=== PATIENT | female | born 1975 | race Caucasian/White ===

== ENCOUNTER → 2018-10-27 | Outpatient (CLI) | payer OTHER, SELFPAY ==
--- NOTE | 2018-10-27 12:40 | REPMRS ---
Patient History The patient states she has not had a clinical breast exam in over a year. Family history of breast cancer at age 50 or over in maternal aunt. Taking hormonal contraceptives for 10 years. Digital Mammo Screening Bilat: October 27, 2018 - Exam #: [id number] Bilateral CC and MLO view(s) were taken. Technologist: Caitlyn Cabrera, Technologist Prior study comparison: 2016, bilateral mammogram, performed at [facility]. FINDINGS: There are scattered fibroglandular densities. There has been no change in the appearance of the mammogram from the prior studies. There is a mild amount of residual fibroglandular tissue which is fairly symmetric. There is no interval development of dominant mass, architectural distortion, or clustered microcalcification suggestive of malignancy. Assessment: BI-RADS/ACR category 1 mammogram. Negative Mammogram. Recommendation Routine screening mammogram in 1 year (for women over age 40). This mammogram was interpreted with the aid of an FDA-approved computer-aided dectection system. Electronically Signed By: Keegan Andrea MD 10/27/18 [id number]
== END ==
LOC: M RAD 08:50
PROVIDERS: ATTEND Obstetrics & Gynecology
DX: Z12.31 Encounter for screening mammogram for malignant neoplasm of breast (principal)

== ENCOUNTER → 2019-06-09 | Outpatient (CLI) | payer OTHER ==
--- NOTE | 2019-06-10 07:37 | REP ---
Clinical: Intermittent substernal chest pain. Technique: Axial noncontrast images from the thoracic inlet to the upper abdomen with coronal and sagittal re-formations. Findings: The bilateral lung kinsey are essentially well-aerated and without consolidation, significant nodule, or mass lesion. No pleural effusion. No pneumothorax. Tracheobronchial tree is patent and within normal limits. No obvious adenopathy. The mediastinum demonstrates normal thoracic aorta, pulmonary vasculature and heart/pericardium. The surrounding musculoskeletal structures including sternum appears normal. Impression: Normal noncontrast chest CT. Electronically Signed by Barry Nick MD 06/10/2019 07:28 A
== END ==
LOC: M RAD 07:35
DX: R07.2 Precordial pain (principal)

== ENCOUNTER → 2019-12-25 | Outpatient (CLI) | payer OTHER ==
--- NOTE | 2019-12-25 11:07 | REPMRS ---
Patient History The patient states she had a clinical breast exam in December 2019. Family history of breast cancer at age 50 or over in maternal aunt. Taking hormonal contraceptives for 10 years. Digital Woman Screen Mammo: December 25, 2019 - Exam #: [id number] Bilateral CC and MLO view(s) were taken. Technologist: Gaby Larson, Technologist Prior study comparison: October 27, 2018, bilateral digital mammo screening bilat, performed at [facility]. September 30, 2017, bilateral digital woman screen mammo, performed at [facility]. 2016, bilateral mammogram, performed at [facility]. FINDINGS: There are scattered fibroglandular densities. The Volpara volumetric breast density category is:B. There has been no change in the appearance of the mammogram from the prior studies. There is a mild amount of scattered fibroglandular density which is fairly symmetric. There is no interval development of dominant mass, architectural distortion, or grouped microcalcification suggestive of malignancy. 3-D tomosynthesis shows no additional findings. Assessment: BI-RADS/ACR category 1 mammogram. Negative Mammogram. Recommendation Routine screening mammogram of both breasts in 1 year (for women over age 40). This patient's Lifetime Breast Cancer Risk is estimated at 13.7 %. This mammogram was interpreted with the aid of an FDA-approved computer-aided dectection system. Electronically Signed By: Jhonatan Caceres MD 12/25/19 [id number]
== END ==
LOC: M WHC 10:15
PROVIDERS: ATTEND Nurse Practitioner Primary Care
DX: Z12.31 Encounter for screening mammogram for malignant neoplasm of breast (principal); Z80.3 Family history of malignant neoplasm of breast